=== PATIENT | male | born 1950 | race Caucasian/White ===

== ENCOUNTER 2017-11-12 02:21 | Observation (INO) ==
--- NOTE | 2017-11-12 02:36 | Emergency Department Note ---
Disposition Clinical Impression: Fluid overload Qualifiers: Hypervolemia type: unspecified Qualified Code(s): E87.70 - Fluid overload, unspecified Acute CHF Qualifiers: Heart failure type: unspecified Qualified Code(s): I50.9 - Heart failure, unspecified Disposition: Admitted As Inpatient Condition: Fair General Adult HPI - General Chief complaint: ED Shortness of Breath/Dyspnea Stated complaint: "SHERYL" Source: patient Limitations: no limitations Nursing Notes Reviewed: Yes Vital Signs Reviewed: Yes - History of Present Illness HPI Narrative: 67-year-old male presents emergency department with concern for shortness of breath. Patient states that he has had it shows of breath on exertion since 11 AM yesterday. Stated that when he went to bed, he laid down flat, he he got actually short of breath. Patient relates that this was similar to a time when he had a left-sided pleural effusion. Stated that it had a be drained. Patient states that this is not as bad. Patient denies any chest pain, pressure , tightness. Denies any cough, fever, sputum production. Pain Scale: 3 - Related Data Home Medications Medication Instructions Recorded Confirmed Amlodipine Besylate 10 mg PO DAILY 09/05/15 11/12/17 Atorvastatin Calcium [Lipitor] 80 mg PO DAILY 09/05/15 11/12/17 Etanercept [Enbrel] 1,000 mg SQ QWEEK 09/05/15 11/12/17 Sulfasalazine [Sulfazine] 500 mg PO BID 09/05/15 11/12/17 Insulin NPH, HUMAN [HumuLIN N] 20 unit SQ DAILY 11/12/17 11/12/17 Levothyroxine Sodium [Synthroid] 250 mcg PO 0630 11/12/17 11/12/17 Allergies Allergy/AdvReac Type Severity Reaction Status Date / Time No Known Allergies Allergy Verified 09/04/15 00:12 All systems ED: reviewed and negative except as stated. Review of Systems: As Per HPI Constitutional: Denies: fever Cardiovascular: Denies: chest pain, palpitations Respiratory: Reports: dyspnea. Denies: cough, wheezes Gastrointestinal: Denies: abdominal pain, nausea, vomiting Genitourinary: Denies: urgency, dysuria, frequency Musculoskeletal: Denies: back pain Past Medical History - Past Medical History Medical history: Reports: diabetes, hyperlipidemia, hypertension, thyroid disease Surgical history: Reports: thyroidectomy (08/15/15 at [facility]) Psychiatric history: Reports: no psych history - Social History Smoking Status: Never smoker Smokeless Tobacco Status: No Alcohol use: Reports: none Drug use: Reports: none Physical Exam - General Limitations: no limitations General appearance: alert, in no apparent distress - Head Head exam: normocephalic - Eye Eye exam: Present: EOMI - ENT ENT exam: normal oropharynx - Neck Neck exam: Present: trachea midline - Chest Chest inspection: Present: symmetric chest wall rise - Respiratory Respiratory exam: Present: other (Rales throughout) - Cardiovascular Cardiovascular exam: Present: regular rate, normal rhythm, normal heart sounds - Abdominal Exam Abdominal exam: Present: soft, Non-Tender. Absent: distention, guarding, rebound, rigidity - Extremities Exam Extremities exam: Present: normal capillary refill - Neurological Exam Neurological exam: Present: alert, oriented X3 - Psychiatric Psychiatric exam: Present: normal affect, normal mood - Skin Skin exam: Present: warm, dry, intact, normal color Course Vital Signs Temperature 98 F 11/12/17 02:28 Pulse Rate 75 11/12/17 02:28 Respiratory Rate 20 11/12/17 02:28 Blood Pressure 218/94 11/12/17 02:28 O2 Sat by Pulse Oximetry 93 11/12/17 02:28 Temperature 98.4 F 11/12/17 05:24 Pulse Rate 64 11/12/17 05:24 Respiratory Rate 16 11/12/17 05:24 Blood Pressure 194/88 11/12/17 05:24 O2 Sat by Pulse Oximetry 94 11/12/17 05:24 Oxygen Delivery Oxygen Delivery Nasal Cannula Medical Decision Making - [facility] Narrative Medical decision making narrative: 67-year-old male presents emergency department with concern for shortness of breath on exertion, and lying flat. Clinically, patient had rales when listening to his lungs. Initially concerning for acute onset congestive heart failure with volume overload. We will obtain chest x-ray. It revealed left pleural effusion as well as vascular congestion bilaterally. Radiology reading only revealing left pleural effusion versus pleural scarring with adjacent atelectasis. Patient was initially hypertensive with a blood pressure over 218/ 94. He was uncomfortable, but not in any significant respiratory distress at any time. Patient a BNP of 221. This is significantly higher from her previous home. Troponin is negative. Creatinine is 1.55, which is within his normal range. Patient's blood pressure lower throughout his stay. It was 186/ 96 at time of admission. We do not administer any blood pressure lowering medications prior to admission. Patient was given 40 mg of Lasix to begin diuresis. Patient is a hospitalist for further observation and management as well as further testing. Patient and at bedside agree with plan. Hemodynamically stable not in acute distress at time of admission. Chest X-Ray 11/12/17 02:37 IMPRESSION: Left pleural effusion versus pleural scarring with adjacent atelectasis, parenchymal scarring or pneumonia. D/ / Juan Kilgore MD / Juan Kilgore MD Interpreting Provider: Juan Kilgore MD Vital Signs Temperature 98 F 11/12/17 02:28 Pulse Rate 75 11/12/17 02:28 Respiratory Rate 20 11/12/17 02:28 Blood Pressure 218/94 11/12/17 02:28 O2 Sat by Pulse Oximetry 93 11/12/17 02:28 Temperature 98 F 11/12/17 02:28 Pulse Rate 64 11/12/17 04:42 Respiratory Rate 18 11/12/17 04:42 Blood Pressure 186/96 11/12/17 04:42 O2 Sat by Pulse Oximetry 95 11/12/17 04:42 Oxygen Delivery Oxygen Delivery Nasal Cannula - Lab Data Result diagrams: 11/12/17 02:43 11/12/17 02:43 Lab Results 11/12/17 11/12/17 11/12/17 Range/Units 02:43 02:43 02:43 WBC 6.0 (4.3-11.1) K/mcL RBC 3.92 L (4.19-5.50) M/mcL Hgb 10.6 L (12.9-16.9) g/dL Hct 30.7 L (37.5-50.1) % MCV 78.3 L (83.0-100.0) fL MCH 27.0 L (28.0-33.3) pg MCHC 34.5 (31.6-35.5) g/dL RDW 13.8 (11.5-14.5) % Plt Count 157 (140-400) K/mcL MPV 9.2 L (9.4-12.4) fL Immature Gran % 0.2 (0-4) % Seg Neutrophils % 77.7 % Lymphocytes % 10.6 % Monocytes % 8.1 % Eosinophils % 2.9 % Basophils % 0.5 % Neutrophils # 4.6 (1.6-8.9) K/mcL Lymphocytes # 0.6 (0.6-4.6) K/mcL Monocytes # 0.5 (0.0-1.3) K/mcL Eosinophils # 0.2 (0.0-0.6) K/mcL Basophils # 0.0 (0.0-0.2) K/mcL Sodium 136 (136-145) mEq/L Potassium 4.0 (3.5-5.1) mEq/L Chloride 105 (98-107) mEq/L Carbon Dioxide 25 (23-29) mEq/L BUN 16 (8-23) mg/dL Creatinine 1.55 H (0.70-1.30) mg/dL Est GFR ( Amer) 54 L (> 60) Est GFR (Non-Af Amer) 45 L (> 60) BUN/Creatinine Ratio 10 (6-26) Glucose 150 H (70-105) mg/dL Calculated Osmolality 286 (280-300) Lactic Acid (0.5-2.2) mmol/L Calcium 8.7 (8.6-10.3) mg/dL Troponin I < 0.03 (< 0.04) ng/mL B-Natriuretic Peptide 221 H (Less than 100) pg/mL TSH 5.934 H (0.340-5.600) mcIU/mL 11/12/17 Range/Units 03:01 WBC (4.3-11.1) K/mcL RBC (4.19-5.50) M/mcL Hgb (12.9-16.9) g/dL Hct (37.5-50.1) % MCV (83.0-100.0) fL MCH (28.0-33.3) pg MCHC (31.6-35.5) g/dL RDW (11.5-14.5) % Plt Count (140-400) K/mcL MPV (9.4-12.4) fL Immature Gran % (0-4) % Seg Neutrophils % % Lymphocytes % % Monocytes % % Eosinophils % % Basophils % % Neutrophils # (1.6-8.9) K/mcL Lymphocytes # (0.6-4.6) K/mcL Monocytes # (0.0-1.3) K/mcL Eosinophils # (0.0-0.6) K/mcL Basophils # (0.0-0.2) K/mcL Sodium (136-145) mEq/L Potassium (3.5-5.1) mEq/L Chloride (98-107) mEq/L Carbon Dioxide (23-29) mEq/L BUN (8-23) mg/dL Creatinine (0.70-1.30) mg/dL Est GFR ( Amer) (> 60) Est GFR (Non-Af Amer) (> 60) BUN/Creatinine Ratio (6-26) Glucose (70-105) mg/dL Calculated Osmolality (280-300) Lactic Acid 0.6 (0.5-2.2) mmol/L Calcium (8.6-10.3) mg/dL Troponin I (< 0.04) ng/mL B-Natriuretic Peptide (Less than 100) pg/mL TSH (0.340-5.600) mcIU/mL - EKG Data EKG #1 EKG attestation: Yes I reviewed and interpreted this EKG. EKG results narrative: 2:37 Ventricular rate 73 bpm, SC interval 132 ms, QRS duration 92 ms, QT 364 ms, QTC 390 ms, normal axis. Sinus rhythm with a ventricular rate 73 bpm. No evidence of any ischemic ST changes on this EKG. Attestation Statement - Attestation Attestation: Dr Cox note: Pt seen in conjunction w/ resident Dr Porras; please see his charting for complete documentation. I spent [id number] time with the patient and I agree with the patient's treatment and disposition. Exertional dypnea gradual onset/ progression since 11 a.m today; no chest pain/diaphoresis; h/o same; vascular congestion noted on x ray; bloodwork and ekg reviewed; no sx at rest or tachypnea or hypoxia @ rest;
[2017-11-12 03:09] LABS: Basophils % 0.5 %; Eosinophils # 0.2 K/mcL (0.0-0.6); Eosinophils % 2.9 %; Hematocrit 30.7 % (37.5-50.1); Hemoglobin 10.6 g/dL (12.9-16.9); Immature Granulocytes % 0.2 % (0-4); Lymphocytes # 0.6 K/mcL (0.6-4.6); Lymphocytes % 10.6 %; Mean Corpuscular HGB Conc 34.5 g/dL (31.6-35.5); Mean Corpuscular Volume 78.3 fL (83.0-100.0); Mean Platelet Volume 9.2 fL (9.4-12.4); Monocytes # 0.5 K/mcL (0.0-1.3); Monocytes % 8.1 %; Neutrophils # 4.6 K/mcL (1.6-8.9); Platelet Count 157 K/mcL (140-400); Red Blood Count 3.92 M/mcL (4.19-5.50); Red Cell Distribution Width 13.8 % (11.5-14.5); Segmented Neutrophils % 77.7 %
[2017-11-12 03:18] LABS: BUN/Creatinine Ratio 10 (6-26); Blood Urea Nitrogen 16 mg/dL (8-23); Calcium 8.7 mg/dL (8.6-10.3); Carbon Dioxide 25 mEq/L (23-29); Chloride 105 mEq/L (98-107); Glucose 150 mg/dL (70-105); Osmolality,Calculated 286 (280-300); Sodium 136 mEq/L (136-145); eGFR For Non-African Americans 45 (> 60)
[2017-11-12 03:19] LABS: Troponin I < 0.03 ng/mL (< 0.04)
[2017-11-12] MEDS ORDERED: Furosemide 40 MG/4 ML VIAL IVP ONE (03:48)
[2017-11-12] MEDS ORDERED: Naloxone 0.4 MG/ML INJ IVP PRN (04:02)
[2017-11-12 04:11] LABS: Thyroid Stimulating Hormone 5.934 mcIU/mL (0.340-5.600)
--- NOTE | 2017-11-12 04:33 | Internal Med History&Physical ---
Date of Encounter: 11/12/17 Time of Encounter: 04:00 Internal Medicine - H&P: HPI Chief complaint: SOB History of present illness: Mr. Clifton is a 67 year old male with past medical history of hypertension, diabetes, papillary thyroid CA status post thyroidectomy, probable CKD, presented to the ED with acute onset of dyspnea. Started this AM after he woke up from sleep, progressively worsened over yesterday and hence came to the ED for further evaluation. Associated with orthopnea without PND or leg swelling. Denies chest pain, palpitation, cough, sputum production, abdominal pain, change in bowel habits, dysuria, joint pain, or rash. Also had mild headache that got better after PO tylenol. Denies blurring of vision, diplopia, dysarthria, focal weakness or numbness. No fever/chills, N/V, or diaphoresis. He said his blood pressure is usually well controlled on Norvasc only. Also note, he had a similar episode in 2016 when he had acute onset of left-sided pleural effusion that was transudative. In the ER, he was afebrile but his blood pressure was elevated at 218/94. Oxygen saturation was at 93% on room air. Labs were largely unremarkable except mildly elevated BNP. Hb and Cr at his baseline, 1st troponin -ve. TSH also mildly elevated. His blood pressure spontaneously improved to 180/89 without any treatment. CXR is reported as " Left pleural effusion versus pleural scarring with adjacent atelectasis, parenchymal scarring or pneumonia." but it appeared to have prominent vascular marking and possible Melanie B line on the right. He was given IV lasix 40mg and admitted for further management. Past Med Surg Social Fam HX - Past Medical History Attestation: Yes The following information was validated with the patient. Medical history: diabetes, hyperlipidemia, hypertension, thyroid disease Psychiatric history: no psych history - Past Surgical History Surgical History: thyroidectomy (08/15/15 at [facility]) Additional surgical history: R elbow - Social History Smoking Status: Never smoker Smokeless Tobacco Status: No Alcohol use: none Drug use: none - Family History Mother Adopted: No Living Status: Hx Family Cardiac Disorders: No Hx Family Respiratory Disorders: Yes (COPD) Hx Family Cancer: Yes (LEUKAEMIA) Hx Family GI Disorders: No Hx Family Endocrine Disorder: No Hx Family Neuromuscular Disorders: No Hx Family Neurologic Disorders: No Hx Family HEENT Disorders: No Hx Family Autoimmune Disorders: No Father Living Status: Hx Family Cardiac Disorders: No Hx Family Respiratory Disorders: No Hx Family Cancer: No Hx Family GI Disorders: No Hx Family Endocrine Disorder: No Hx Family Neuromuscular Disorders: No Hx Family Neurologic Disorders: No Hx Family HEENT Disorders: No Hx Family Autoimmune Disorders: No Brother Adopted: No Living Status: Still Living Hx Family Cardiac Disorders: No Hx Family Respiratory Disorders: No Hx Family Cancer: No Hx Family GI Disorders: No Hx Family Endocrine Disorder: No Hx Family Neuromuscular Disorders: No Hx Family Neurologic Disorders: No Hx Family HEENT Disorders: No Hx Family Autoimmune Disorders: No Son Living Status: Hx Family Cancer: Yes (Hodgkin lymphoma, leukemia) Internal Medicine - H&P: Meds Amlodipine Besylate 10 mg PO DAILY 09/05/15 [History] Atorvastatin Calcium [Lipitor] 80 mg PO DAILY 09/05/15 [History] Etanercept [Enbrel] 1,000 mg SQ 09/05/15 [History] Sulfasalazine [Sulfazine] 500 mg PO BID 09/05/15 [History] Insulin NPH, HUMAN [HumuLIN N] 20 unit SQ DAILY 11/12/17 [History] Levothyroxine Sodium [Synthroid] 250 mcg PO 0630 11/12/17 [History] 3 Allergy/AdvReac Type Severity Reaction Status Date / Time No Known Allergies Allergy Verified 09/04/15 00:12 All Systems PM: A 10-system review of systems was performed and is negative for pertinent findings except as documented above in the HPI. - Constitutional Vitals: Temp Pulse Resp BP Pulse Ox 98 F 66 22 180/89 95 11/12/17 02:28 11/12/17 04:10 11/12/17 04:10 11/12/17 04:10 11/12/17 04:10 Exam: General: Alert and oriented, speaking in full sentences HEENT:EOM, pupils equal, round, and reactive. Cardiovascular:Normal S1 & S2, no murmurs or gallops. Unable to appreciate JVD. Pulse regular. Lungs: bibasilar rales upto midzones, no rhonchi or wheezes. Abdomen:Soft, non-tender, no rigidity. Extremities:No deformity, no edema or tenderness, no joint swelling. Neurological:Normal cognition and motor skills. Skin:Normal color, no rash, no lesions. Pulses:Carotid and radial pulses normal +2. Rest of the physical exam is non-contributory Internal Med - H&P Results - Labs CBC & Chem 7: 11/12/17 02:43 11/12/17 02:43 Labs: Short CBC 11/12/17 Range/Units 02:43 WBC 6.0 (4.3-11.1) K/mcL Hgb 10.6 L (12.9-16.9) g/dL Hct 30.7 L (37.5-50.1) % Plt Count 157 (140-400) K/mcL Neutrophils # 4.6 (1.6-8.9) K/mcL BMP 11/12/17 02:43 Sodium 136 Potassium 4.0 Chloride 105 Carbon Dioxide 25 BUN 16 Creatinine 1.55 H Glucose 150 H Calcium 8.7 Cardiac Enzymes 11/12/17 Range/Units 02:43 Troponin I < 0.03 (< 0.04) ng/mL - Impressions ITS Impressions Chest X-Ray 11/12/17 02:37 IMPRESSION: Left pleural effusion versus pleural scarring with adjacent atelectasis, parenchymal scarring or pneumonia. D/ / Juan Kilgore MD / Juan Kilgore MD Interpreting Provider: Juan Kilgore MD - Assessment and plan (1) Heart failure, diastolic, with acute decompensation Current Visit: Yes Status: Acute Assessment and plan: Likely due to elevated blood pressure However, his blood pressure is mostly well-controlled at baseline with only one agent Also, he endorses history of headache associated with it. ?pheochromocytoma with paroxysmal HTN will give 1 dose of IV lasix and reassess for further need 1st troponin -ve, will trend to rule out ACS being the cause of decompensation Echocardiogram will send for metanephrine level resume home meds for BP (2) Hypertension Current Visit: Yes Status: Chronic Assessment and plan: ?Pheochromocytoma with paroxysmal HTN send metanephrine level as above resume home meds Qualifiers: Hypertension type: essential hypertension Qualified Code(s): I10 - Essential (primary) hypertension (3) Hypothyroidism Current Visit: No Status: Chronic Assessment and plan: TSH mildly elevated but is not reliable in the inpatient setting. Continue home dose of levothyroxine. Suggest repeating TSH in 4-6 weeks Qualifiers: Hypothyroidism type: postoperative Qualified Code(s): E89.0 - Postprocedural hypothyroidism (4) Diabetes Current Visit: No Status: Chronic Assessment and plan: ADA and sliding scale coverage Qualifiers: Diabetes mellitus type: type 2 Diabetes mellitus fdc insulin use: unspecified intermediate frame tender insulin use status Diabetes mellitus complication status : with unspecified complications Qualified Code(s): E11.8 - Type 2 diabetes mellitus with unspecified complications (5) Rheumatoid arthritis Current Visit: No Status: Chronic Assessment and plan: Continue sulfasalazine. Hold off on Enbrel. Qualifiers: Rheumatoid arthritis location: unspecified site Rheumatoid factor presence : unspecified presence Qualified Code(s): M06.9 - Rheumatoid arthritis, unspecified (6) DVT prophylaxis Current Visit: No Status: Acute Assessment and plan: Subcutaneous heparin - Time Spent With Patient Total time spent is greater than 50% in coordination of care (as documented) at patient's floor/unit and/or counseling patient:
[2017-11-12] MEDS ORDERED: D5% in Water 1,000 ML IVC PRN (04:45)
[2017-11-12] MEDS ORDERED: Dextrose Gel 15 GM/37.5 ML TUBE PO PRN ×2 (04:45)
[2017-11-12] MEDS ORDERED: *HR* Dextrose 50 % in Water (Syg) 50 ML SYRINGE IVP PRN (04:45)
[2017-11-12 05:14] LABS: Amphetamine Screen,Urine Negative ng/mL (Cutoff=1000); Barbiturate Screen,Urine Negative ng/mL (Cutoff=200); Benzodiazepines Screen,Urine Negative ng/mL (Cutoff=200); Cannabinoid Screen,Urine Negative ng/mL (Cutoff = 50); Cocaine Screen,Urine Negative ng/mL (Cutoff= 300); Opiate Screen,Urine Negative ng/mL (Cutoff=300); Phencyclidine Screen,Urine Negative ng/mL (Cutoff=25)
[2017-11-12] MEDS ORDERED: *HR* Labetalol 20 MG/4 ML SYRINGE IVP PRN (05:26)
[2017-11-12] MEDS ORDERED: *HR* Heparin 5,000 UNIT/ML VIAL SQ SCH (06:00)
[2017-11-12] MEDS: Insulin LISPRO 300 UNITS/3 ML VIAL SQ SCH ×2 (08:41→11:27)
[2017-11-12] MEDS ORDERED: amLODIPine 5 MG TABLET PO SCH (09:00)
[2017-11-12] MEDS ORDERED: sulfaSALAzine 500 MG TABLET PO SCH (09:00)
[2017-11-12 11:18] VITALS: BP 168/69
--- NOTE | 2017-11-12 13:19 | Discharge Summary ---
- NOTES TO OUTPATIENT PROVIDER Notes to Outpatient Provider: f/u with PCP in one week. Please stop taking HCTZ since with your Chronic kidney disease it may not work for you. Start taking Coreg 6.25 BID for BP and Heart failure. Also take Lasix as water pill for your shortness of breath Orders not resulted at time of discharge: Pending orders 11/12/17 06:13 Metanephrines, Plasma (Free) Routine Date of Encounter: 11/12/17 Time of Encounter: 13:18 - Discharge Diagnosis (1) Heart failure, diastolic, with acute decompensation Priority: Primary Status: Acute (2) DVT prophylaxis Priority: Secondary Status: Acute (3) Hypertension Priority: Secondary Status: Chronic Qualifiers: Hypertension type: essential hypertension Qualified Code(s): I10 - Essential (primary) hypertension (4) Diabetes Priority: Secondary Status: Chronic Qualifiers: Diabetes mellitus type: type 2 Diabetes mellitus snf insulin use: unspecified snf insulin use status Diabetes mellitus complication status : with unspecified complications Qualified Code(s): E11.8 - Type 2 diabetes mellitus with unspecified complications (5) Hypothyroidism Priority: Secondary Status: Chronic Qualifiers: Hypothyroidism type: postoperative Qualified Code(s): E89.0 - Postprocedural hypothyroidism (6) Rheumatoid arthritis Priority: Secondary Status: Chronic Qualifiers: Rheumatoid arthritis location: unspecified site Rheumatoid factor presence : unspecified presence Qualified Code(s): M06.9 - Rheumatoid arthritis, unspecified Hospital course: Mr. Clifton is a 67 year old male with past medical history of hypertension, diabetes, papillary thyroid CA status post thyroidectomy, probable CKD stage 3, presented to the ED with acute onset of dyspnea. He does have mild acute exacerbation of chronic CHF. He was placed on rn cardiac rehab and checked serial troponin which were negative. Also he had 2D Echo done which showed preserved LVEF with diastolic dysfunction. He was given Lasix. Pt stated he is feeling much better today SOB delatorre. So will d/c him home in stable condition. Recommend to take Lasix instead of HCTZ. Also added Coreg due to CHF and uncontrolled BP. - Time Spent with Patient Total time spent providing and/or coordinating discharge services: - Discharge Medications Prescriptions: Carvedilol [Coreg] 6.25 mg PO BIDWM #60 tablet Furosemide [Lasix] 20 mg PO DAILY #30 tablet Home Medications: Amlodipine Besylate 10 mg PO DAILY 09/05/15 [History] Atorvastatin Calcium [Lipitor] 80 mg PO DAILY 09/05/15 [History] Etanercept [Enbrel] 1,000 mg SQ QWEEK 09/05/15 [History] Sulfasalazine [Sulfazine] 1,000 mg PO BID 09/05/15 [History] Carvedilol [Coreg] 6.25 mg PO BIDWM #60 tablet 11/12/17 [Rx] Cholecalciferol (D-3) [Vitamin D] 3,000 unit PO DAILY 11/12/17 [History] Cyclobenzaprine HCl 5 mg PO TID PRN 11/12/17 [History] Etanercept [Enbrel] 50 mg SQ QWEEK 11/12/17 [History] Furosemide [Lasix] 20 mg PO DAILY #30 tablet 11/12/17 [Rx] Insulin NPH Human Isophane [Novolin N] 20 unit SQ QPM 11/12/17 [History] Insulin NPH, HUMAN [HumuLIN N] 20 unit SQ DAILY 11/12/17 [History] Levothyroxine Sodium [Synthroid] 250 mcg PO DAILY 11/12/17 [History] Losartan Potassium [Cozaar] 100 mg PO DAILY 11/12/17 [History] Allergies/Adverse Reactions: 3 Allergy/AdvReac Type Severity Reaction Status Date / Time No Known Allergies Allergy Verified 09/04/15 00:12 Date of admission: 11/12/17 04:09 Primary care physician: [facility] - Constitutional Vitals: Temp Pulse Resp BP Pulse Ox 99.1 F 57 18 168/69 96 11/12/17 11:17 11/12/17 11:17 11/12/17 11:17 11/12/17 11:17 11/12/17 11:17 General appearance: Present: A&O X 3, no acute distress, answers questions appropriately - Head Head exam: Present: atraumatic, normal inspection - Neck Neck exam general surgery: Present: supple - Respiratory Respiratory exam: Present: decreased breath sounds. Absent: rales, respiratory distress, rhonchi, wheezes - Cardiovascular Cardiovascular exam: Present: RRR, +S1, +S2. Absent: systolic murmur - Extremities Exam Extremities exam: Absent: calf tenderness, pedal edema, tenderness - Back Exam Back exam: Absent: CVA tenderness (L), CVA tenderness (R) - Neurological Exam Neurological exam: Present: alert, oriented X3 - Patient Status Disposition: Home, Self-Care Condition: Fair - Discharge Instructions Follow Up With: [facility],PCP [Primary Care Provider] - - Diet and Activity Activity: increase activity as tolerated Diet: low salt diet
--- NOTE | 2017-11-12 17:14 | Electrocardiograph Report ---
[address] [place] [address] Test Date: 2017-11-12 Pat Name: Wyatt Clifton Department: 104 Room: 2A Gender: M Medical Superintendent: MARINA : 1950 Requested By: Heron Mitchell Order Number: [id number] Reading MD: Moy Sim Measurements Intervals [place] Rate: 73 P: 47 NM: 132 QRS: 51 QRSD: 92 T: 52 QT: 364 QTc: 390 Interpretive Statements SINUS RHYTHM SEPTAL MYOCARDIAL INFARCTION, OF INDETERMINATE AGE Electronically Signed On 11-12-2017 17:12:21 EDT by Moy Sim
[2017-11-12] MEDS ORDERED: Insulin LISPRO 300 UNITS/3 ML VIAL SQ SCH (21:00)
[2017-11-15 14:13] LABS: Metanephrine, Plasma 0.15 nmol/L (0.00-0.49)
== END 2017-11-12 14:34 | disposition home or self-care (01) ==
LOC: EMEROO 02:21 → 2ANU 02:21
PROVIDERS: ADMIT Internal Medicine; ATTEND Internal Medicine

== ENCOUNTER 2020-04-24 18:02 | Observation (INO) ==
[2020-04-24 19:20] LABS: INR 1.1; Prothrombin Time 12.3 Seconds (9.4-12.1)
[2020-04-24 19:22] LABS: Bilirubin,Urine Negative (Negative); Blood,Urine Trace (Negative); Clarity,Urine Clear (Clear); Color,Urine Colorless (Yellow); Glucose,Urine (UA) 50 mg/dL (Normal); Ketones,Urine Negative (Negative); Leukocyte Esterase,Urine Negative (Negative); Nitrite,Urine Negative (Negative); Protein,Urine >=300 mg/dL (Neg-Trace); RBC,Urine 0-3 per hpf (0-3); Specific Gravity,Urine 1.015 (1.010-1.025); Squamous Epithelial Cell,Urine Few per hpf (None-Few); Urobilinogen,Urine Normal (Normal); WBC,Urine 0-3 per hpf (0-3)
[2020-04-24 19:22] LABS: Activated Partial Thrombo Time 28.2 Seconds (26.0-36.0)
[2020-04-24 19:38] LABS: Basophils % 0.5 %; Eosinophils # 0.1 K/mcL (0.0-0.6); Eosinophils % 1.1 %; Hematocrit 27.9 % (37.5-50.1); Hemoglobin 8.7 g/dL (12.9-16.9); Immature Granulocytes % 0.3 % (0-4); Lymphocytes # 0.4 K/mcL (0.6-4.6); Lymphocytes % 6.8 %; Mean Corpuscular HGB Conc 31.2 g/dL (31.6-35.5); Mean Corpuscular Hemoglobin 26.9 pg (28.0-33.3); Mean Corpuscular Volume 86.4 fL (83.0-100.0); Monocytes # 0.6 K/mcL (0.0-1.3); Monocytes % 9.3 %; Platelet Count 140 K/mcL (140-400); Red Blood Count 3.23 M/mcL (4.19-5.50); Red Cell Distribution Width 14.1 % (11.5-14.5); White Blood Count 6.2 K/mcL (4.3-11.1)
[2020-04-24 19:56] LABS: Alanine Aminotransferase 11 Units/L (7-52); Albumin 3.3 g/dL (3.5-5.7); Albumin/Globulin Ratio 1.1 (1.1-2.2); Alkaline Phosphatase 88 Units/L (34-104); Aspartate Amino Transferase 13 Units/L (13-39); BUN/Creatinine Ratio 16 (6-26); Bilirubin,Direct 0.1 mg/dL (0.0-0.2); Bilirubin,Indirect 0.2 mg/dL (0.0-1.0); Bilirubin,Total 0.3 mg/dL (0.3-1.0); Blood Urea Nitrogen 39 mg/dL (8-23); Calcium 8.6 mg/dL (8.6-10.3); Carbon Dioxide 18 mEq/L (23-29); Chloride 109 mEq/L (98-107); Globulin 2.9 g/dL (2.4-3.5); Glucose 147 mg/dL (70-105); Osmolality,Calculated 296 (280-300); Potassium 4.4 mEq/L (3.5-5.1); Sodium 137 mEq/L (136-145); Total Protein 6.2 g/dL (6.4-8.9); Troponin I < 0.03 ng/mL (< 0.04); eGFR For African Americans 31 (> 60); eGFR For Non-African Americans 26 (> 60)
[2020-04-24] MEDS ORDERED: Furosemide 40 MG/4 ML VIAL IVP ONE (19:59)
[2020-04-24] MEDS ORDERED: carvediloL 6.25 MG TABLET PO ONE (20:00)
[2020-04-24] MEDS ORDERED: Nitroglycerin 0.4 MG TAB.SUBL SL ONE (22:10)
[2020-04-24] MEDS: Nitroglycerin 0.4 MG TAB.SUBL SL PRN ×3 (22:11→22:21)
[2020-04-24] MEDS ORDERED: Aspirin 81 MG TAB.CHEW PO ONE (22:13)
[2020-04-24] MEDS ORDERED: Ondansetron ODT 4 MG TAB.RAPDIS SL PRN (22:31)
[2020-04-24] MEDS ORDERED: Naloxone 0.4 MG/ML INJ IVP PRN (22:31)
[2020-04-24] MEDS ORDERED: Acetaminophen 325 MG TABLET PO PRN (22:31)
[2020-04-24] MEDS ORDERED: Perflutren Lipid Microsphere 1.3 ML in 0.9 % Sodium Chloride 8.7 ML IVP PRN (23:47)
[2020-04-25 00:58] LABS: Basophils % 0.3 %; Eosinophils % 0.5 %; Hematocrit 26.8 % (37.5-50.1); Hemoglobin 8.3 g/dL (12.9-16.9); Immature Granulocytes % 0.2 % (0-4); Lymphocytes # 0.4 K/mcL (0.6-4.6); Mean Corpuscular Hemoglobin 26.6 pg (28.0-33.3); Mean Corpuscular Volume 85.9 fL (83.0-100.0); Mean Platelet Volume 9.2 fL (9.4-12.4); Monocytes # 0.6 K/mcL (0.0-1.3); Monocytes % 9.9 %; Neutrophils # 5.1 K/mcL (1.6-8.9); Platelet Count 126 K/mcL (140-400); Red Blood Count 3.12 M/mcL (4.19-5.50); Red Cell Distribution Width 14.2 % (11.5-14.5); Segmented Neutrophils % 83.1 %; White Blood Count 6.2 K/mcL (4.3-11.1)
[2020-04-25 01:06] LABS: Activated Partial Thrombo Time 28.3 Seconds (26.0-36.0)
[2020-04-25 01:54] LABS: Calcium 8.1 mg/dL (8.6-10.3); Chol/HDL Ratio 2.8 (0-4.9); Magnesium 1.5 mg/dL (1.6-2.6); Phosphorous 3.1 mg/dL (2.7-4.5); Potassium 4.5 mEq/L (3.5-5.1); Thyroid Stimulating Hormone 7.352 mcIU/mL (0.340-5.600)
[2020-04-25] MEDS: Azithromycin 500 MG in 0.9 % Sodium Chloride 250 ML IVPB SCH ×2 (02:03→17:30)
[2020-04-25] MEDS: cefTRIAXone 1,000 MG in 0.9 % Sodium Chloride Mini Bag 100 ML IVPB SCH ×2 (06:34→07:47)
[2020-04-26] MEDS ORDERED: CefTRIAXone 1,000 MG VIAL ONE ×2 (08:40→08:41)
[2020-04-26] MEDS: cefTRIAXone 1,000 MG in 0.9 % Sodium Chloride Mini Bag 100 ML IVPB SCH (08:54)
[2020-04-26] MEDS ORDERED: NON-FORMULARY MEDICATION 1 EACH EACH (Ipratropium/Albuterol Sulfate 1 PUFF) IH PRN (12:37)
[2020-04-26] MEDS ORDERED: DICLOFENAC SODIUM APPL TD PRN (12:37)
[2020-04-26 12:42] VITALS: BP 190/88
[2020-04-26] MEDS ORDERED: NIFEdipine XL (24 HR) 60 MG TAB.ER.24 PO SCH (12:47)
[2020-04-26] MEDS ORDERED: sulfaSALAzine 500 MG TABLET PO SCH (21:00)
[2020-04-26] MEDS ORDERED: carvediloL 6.25 MG TABLET PO SCH (21:00)
[2020-04-26] MEDS ORDERED: Budesonide/Formoterol 160/4.5 1 PUFF INH IH SCH (21:00)
[2020-04-27] MEDS ORDERED: Cholecalciferol (D-3) 1,000 UNIT (25MCG) TABLET PO SCH (09:00)
[2020-04-27] MEDS ORDERED: Furosemide 20 MG TABLET PO SCH (09:00)
[2020-04-27] MEDS ORDERED: Aspirin Enteric Coated 81 MG Tablet PO SCH (09:00)
[2020-04-27] MEDS ORDERED: NIFEdipine XL (24 HR) 60 MG TAB.ER.24 PO SCH (09:00)
== END 2020-04-26 13:51 | disposition home health service (06) ==
LOC: CDU 18:02 → EMEROOARM 18:02 → SUATTDRO 22:13 → CDU 22:50
PROVIDERS: ADMIT Internal Medicine; ATTEND Student in an Organized Health Care Education/Training Program

== ENCOUNTER 2020-05-17 04:37 | Observation (INO) ==
[2020-05-17 05:22] LABS: Basophils % 0.7 %; Eosinophils # 0.2 K/mcL (0.0-0.6); Eosinophils % 2.9 %; Hematocrit 32.4 % (37.5-50.1); Immature Granulocytes % 0.2 % (0-4); Lymphocytes # 0.5 K/mcL (0.6-4.6); Lymphocytes % 8.7 %; Mean Corpuscular HGB Conc 30.9 g/dL (31.6-35.5); Mean Corpuscular Volume 87.3 fL (83.0-100.0); Mean Platelet Volume 9.3 fL (9.4-12.4); Monocytes # 0.4 K/mcL (0.0-1.3); Monocytes % 6.6 %; Neutrophils # 4.8 K/mcL (1.6-8.9); Platelet Count 150 K/mcL (140-400); Red Blood Count 3.71 M/mcL (4.19-5.50); Red Cell Distribution Width 15.9 % (11.5-14.5); Segmented Neutrophils % 80.9 %; White Blood Count 5.9 K/mcL (4.3-11.1)
[2020-05-17 05:43] LABS: BUN/Creatinine Ratio 17 (6-26); Blood Urea Nitrogen 39 mg/dL (8-23); Carbon Dioxide 22 mEq/L (23-29); Chloride 107 mEq/L (98-107); Glucose 154 mg/dL (70-105); Osmolality,Calculated 296 (280-300); Potassium 4.4 mEq/L (3.5-5.1); Sodium 137 mEq/L (136-145); eGFR For African Americans 35 (> 60); eGFR For Non-African Americans 29 (> 60)
[2020-05-17 05:44] LABS: Troponin I < 0.03 ng/mL (< 0.04)
[2020-05-17] MEDS ORDERED: Ondansetron 4 MG/2 ML VIAL IVP PRN (08:44)
[2020-05-17] MEDS ORDERED: Naloxone 0.4 MG/ML INJ IVP PRN (08:44)
[2020-05-17] MEDS ORDERED: Perflutren Lipid Microsphere 1.3 ML in 0.9 % Sodium Chloride 8.7 ML IVP PRN (08:51)
[2020-05-17] MEDS ORDERED: Doxycycline 100 MG CAPSULE PO SCH (09:00)
[2020-05-17] MEDS: Aspirin Enteric Coated 81 MG Tablet PO SCH (10:19)
[2020-05-17] MEDS: carvediloL 6.25 MG TABLET PO SCH ×2 (10:19→20:22)
[2020-05-17] MEDS: NIFEdipine XL (24 HR) 60 MG TAB.ER.24 PO SCH (10:19)
[2020-05-17] MEDS: Furosemide 20 MG/2 ML VIAL IVP SCH ×2 (10:20→20:22)
[2020-05-17] MEDS ORDERED: Ipratropium 1 PUFF INHALER IH ONE (10:30)
[2020-05-17] MEDS: Ipratropium 1 PUFF INHALER IH SCH ×4 (11:21→23:44)
[2020-05-17] MEDS: Budesonide/Formoterol 160/4.5 1 PUFF INH IH SCH ×2 (11:21→20:01)
[2020-05-17] MEDS ORDERED: Ipratropium/Albuterol Neb 3 ML IH SCH (12:00)
[2020-05-17] MEDS: *HR* Heparin 5,000 UNIT/ML VIAL SQ SCH (17:54)
[2020-05-18 00:46] LABS: Basophils % 0.5 %; Eosinophils # 0.1 K/mcL (0.0-0.6); Eosinophils % 3.1 %; Hematocrit 27.9 % (37.5-50.1); Hemoglobin 8.9 g/dL (12.9-16.9); Immature Granulocytes % 0.3 % (0-4); Lymphocytes # 0.6 K/mcL (0.6-4.6); Lymphocytes % 14.5 %; Mean Corpuscular HGB Conc 31.9 g/dL (31.6-35.5); Mean Corpuscular Hemoglobin 27.7 pg (28.0-33.3); Mean Corpuscular Volume 86.9 fL (83.0-100.0); Mean Platelet Volume 9.9 fL (9.4-12.4); Monocytes # 0.3 K/mcL (0.0-1.3); Monocytes % 8.5 %; Neutrophils # 2.8 K/mcL (1.6-8.9); Platelet Count 136 K/mcL (140-400); Red Blood Count 3.21 M/mcL (4.19-5.50); Red Cell Distribution Width 15.8 % (11.5-14.5); Segmented Neutrophils % 73.1 %; White Blood Count 3.9 K/mcL (4.3-11.1)
[2020-05-18 00:51] LABS: INR 1.1; Prothrombin Time 13.2 Seconds (9.4-12.1)
[2020-05-18 00:54] LABS: Activated Partial Thrombo Time 28.5 Seconds (26.0-36.0)
[2020-05-18 01:06] LABS: Calcium 8.5 mg/dL (8.6-10.3); Magnesium 1.7 mg/dL (1.6-2.6); Phosphorous 3.2 mg/dL (2.7-4.5); Potassium 4.6 mEq/L (3.5-5.1)
[2020-05-18] MEDS: Ipratropium 1 PUFF INHALER IH SCH ×3 (03:48→11:13)
[2020-05-18] MEDS: *HR* Heparin 5,000 UNIT/ML VIAL SQ SCH (05:29)
[2020-05-18] MEDS: Budesonide/Formoterol 160/4.5 1 PUFF INH IH SCH (07:35)
[2020-05-18 07:55] VITALS: BP 176/87
[2020-05-18] MEDS: Furosemide 20 MG/2 ML VIAL IVP SCH (09:34)
[2020-05-18] MEDS: carvediloL 6.25 MG TABLET PO SCH (09:34)
[2020-05-18] MEDS: NIFEdipine XL (24 HR) 60 MG TAB.ER.24 PO SCH (09:34)
[2020-05-18] MEDS: Aspirin Enteric Coated 81 MG Tablet PO SCH (09:34)
[2020-05-18] MEDS ORDERED: cefTRIAXone 1,000 MG in Water for inj. (sterile) 10 ML IVP SCH (10:00)
[2020-05-18] MEDS ORDERED: Azithromycin 500 MG in 0.9 % Sodium Chloride 250 ML IVPB SCH (10:00)
== END 2020-05-18 12:28 | disposition home or self-care (01) ==
LOC: 2NENU 04:37 → EMEROOARM 04:37 → 2NENU 09:33
PROVIDERS: ADMIT Internal Medicine; ATTEND Internal Medicine

== ENCOUNTER 2021-10-26 19:02 | Observation (INO) ==
[2021-10-26 19:40] LABS: Basophils % 0.5 %; Eosinophils # 0.1 K/mcL (0.0-0.6); Eosinophils % 2.5 %; Hematocrit 25.8 % (37.5-50.1); Hemoglobin 7.9 g/dL (12.9-16.9); Immature Granulocytes % 0.5 % (0-4); Lymphocytes # 0.4 K/mcL (0.6-4.6); Lymphocytes % 8.3 %; Mean Corpuscular HGB Conc 30.6 g/dL (31.6-35.5); Mean Corpuscular Hemoglobin 27.1 pg (28.0-33.3); Mean Corpuscular Volume 88.4 fL (83.0-100.0); Mean Platelet Volume 8.8 fL (9.4-12.4); Monocytes # 0.3 K/mcL (0.0-1.3); Monocytes % 6.3 %; Neutrophils # 3.5 K/mcL (1.6-8.9); Platelet Count 143 K/mcL (140-400); Red Blood Count 2.92 M/mcL (4.19-5.50); Red Cell Distribution Width 15.7 % (11.5-14.5); Segmented Neutrophils % 81.9 %; White Blood Count 4.3 K/mcL (4.3-11.1)
[2021-10-26 20:00] LABS: BUN/Creatinine Ratio 17 (6-26); Blood Urea Nitrogen 53 mg/dL (8-23); Calcium 8.9 mg/dL (8.6-10.3); Carbon Dioxide 16 mEq/L (23-29); Chloride 114 mEq/L (98-107); Glucose 55 mg/dL (70-105); Magnesium 1.8 mg/dL (1.6-2.6); Osmolality,Calculated 296 (280-300); Potassium 4.7 mEq/L (3.5-5.1); Sodium 137 mEq/L (136-145); eGFR For African Americans 24 (> 60); eGFR For Non-African Americans 20 (> 60)
[2021-10-26 20:09] LABS: Troponin I < 0.03 ng/mL (< 0.04)
[2021-10-26] MEDS ORDERED: *HR* Dextrose 50 % in Water (Syg) 50 ML SYRINGE ONE (20:26)
[2021-10-26] MEDS: D10% in Water 500 ML IVC SCH (21:29)
[2021-10-26] MEDS ORDERED: Naloxone 0.4 MG/ML INJ IVP PRN (21:43)
[2021-10-26] MEDS ORDERED: Acetaminophen 325 MG TABLET PO PRN (21:43)
[2021-10-26] MEDS ORDERED: Melatonin 3 MG TABLET PO PRN (21:43)
[2021-10-26] MEDS ORDERED: Ondansetron 4 MG/2 ML VIAL IVP PRN (21:43)
[2021-10-26 22:23] LABS: Influenza A PCR Negative (Negative); Influenza B PCR Negative (Negative); Resp. Syncytial Virus PCR Negative (Negative)
[2021-10-26 22:27] LABS: SARS-CoV-2 by PCR (In House) Negative (Negative)
[2021-10-26] MEDS ORDERED: *HR* Dextrose 50 % in Water (Syg) 50 ML SYRINGE IVP PRN (23:49)
[2021-10-26] MEDS ORDERED: Dextrose Gel 15 GM/37.5 ML TUBE PO PRN ×2 (23:49)
[2021-10-27] MEDS ORDERED: Furosemide 40 MG TABLET PO ONE (00:45)
[2021-10-27] MEDS ORDERED: NIFEdipine XL (24 HR) 60 MG TAB.ER.24 PO SCH (02:25)
[2021-10-27] MEDS: D10% in Water 500 ML IVC SCH ×2 (02:42→12:04)
[2021-10-27 03:01] LABS: Basophils % 0.2 %; Eosinophils # 0.1 K/mcL (0.0-0.6); Eosinophils % 0.9 %; Hematocrit 27.5 % (37.5-50.1); Hemoglobin 8.3 g/dL (12.9-16.9); Immature Granulocytes % 0.4 % (0-4); Lymphocytes # 0.3 K/mcL (0.6-4.6); Lymphocytes % 5.5 %; Mean Corpuscular HGB Conc 30.2 g/dL (31.6-35.5); Mean Corpuscular Hemoglobin 26.9 pg (28.0-33.3); Mean Corpuscular Volume 89.3 fL (83.0-100.0); Mean Platelet Volume 9.3 fL (9.4-12.4); Monocytes # 0.3 K/mcL (0.0-1.3); Monocytes % 4.8 %; Neutrophils # 4.9 K/mcL (1.6-8.9); Platelet Count 185 K/mcL (140-400); Red Blood Count 3.08 M/mcL (4.19-5.50); Red Cell Distribution Width 15.7 % (11.5-14.5); Segmented Neutrophils % 88.2 %; White Blood Count 5.6 K/mcL (4.3-11.1)
[2021-10-27 03:31] LABS: Calcium 8.6 mg/dL (8.6-10.3); Magnesium 1.8 mg/dL (1.6-2.6); Phosphorous 3.5 mg/dL (2.7-4.5); Potassium 5.4 mEq/L (3.5-5.1)
[2021-10-27] MEDS: *HR* Heparin 5,000 UNIT/ML VIAL SQ SCH ×2 (06:20→15:32)
[2021-10-27] MEDS: hydrALAZINE 25 MG TABLET PO SCH ×2 (08:48→15:32)
[2021-10-27] MEDS ORDERED: SODIUM ZIRCONIUM CYCLOSILICATE 5 GM POWD.PACK PO SCH (09:00)
[2021-10-27] MEDS ORDERED: Aspirin Enteric Coated 81 MG Tablet PO SCH (09:00)
[2021-10-27] MEDS ORDERED: Budesonide/Formoterol 160/4.5 1 PUFF INH IH SCH (09:00)
[2021-10-27 10:27] LABS: Estimated Average Glucose 103 mg/dl; Hemoglobin A1C 5.2 %
[2021-10-27 12:22] VITALS: BP 151/54; PULSE 68; TEMP 97.7; O2SAT 98
== END 2021-10-27 16:30 | disposition home or self-care (01) ==
LOC: SUATTDRO → EMEROOARM 19:02 → 2NENU 19:02 → SUATTDRO 22:08 → 2NENU 23:50
PROVIDERS: ADMIT Internal Medicine; ATTEND Internal Medicine

== ENCOUNTER 2021-11-23 18:31 | Inpatient (IN) ==
[2021-11-23 21:02] LABS: Basophils % 0.8 %; Eosinophils # 0.2 K/mcL (0.0-0.6); Eosinophils % 4.4 %; Hematocrit 23.3 % (37.5-50.1); Hemoglobin 7.2 g/dL (12.9-16.9); Immature Granulocytes % 0.3 % (0-4); Lymphocytes # 0.3 K/mcL (0.6-4.6); Lymphocytes % 8.9 %; Mean Corpuscular HGB Conc 30.9 g/dL (31.6-35.5); Mean Corpuscular Hemoglobin 26.7 pg (28.0-33.3); Mean Corpuscular Volume 86.3 fL (83.0-100.0); Mean Platelet Volume 8.8 fL (9.4-12.4); Monocytes # 0.3 K/mcL (0.0-1.3); Monocytes % 8.6 %; Platelet Count 182 K/mcL (140-400); Red Cell Distribution Width 14.9 % (11.5-14.5); White Blood Count 3.8 K/mcL (4.3-11.1)
[2021-11-23 21:17] LABS: BUN/Creatinine Ratio 15 (6-26); Blood Urea Nitrogen 51 mg/dL (8-23); Calcium 8.4 mg/dL (8.6-10.3); Carbon Dioxide 20 mEq/L (23-29); Chloride 106 mEq/L (98-107); Glucose 122 mg/dL (70-105); Osmolality,Calculated 293 (280-300); Potassium 4.7 mEq/L (3.5-5.1); Sodium 134 mEq/L (136-145); Troponin I < 0.03 ng/mL (< 0.04)
[2021-11-23] MEDS ORDERED: Furosemide 40 MG/4 ML VIAL IVP ONE (21:49)
[2021-11-23 22:44] LABS: Thyroid Stimulating Hormone 32.116 mcIU/mL (0.340-5.600)
[2021-11-23] MEDS ORDERED: Acetaminophen 325 MG TABLET PO PRN (23:07)
[2021-11-23] MEDS ORDERED: Naloxone 0.4 MG/ML INJ IVP PRN (23:07)
[2021-11-23] MEDS ORDERED: Ondansetron 4 MG/2 ML VIAL IVP PRN (23:07)
[2021-11-23] MEDS ORDERED: Melatonin 3 MG TABLET PO PRN (23:07)
[2021-11-24] MEDS ORDERED: hydrALAZINE 25 MG TABLET PO SCH (00:15)
[2021-11-24 02:47] LABS: Basophils % 0.5 %; Eosinophils # 0.2 K/mcL (0.0-0.6); Eosinophils % 6.3 %; Hematocrit 24.2 % (37.5-50.1); Hemoglobin 7.4 g/dL (12.9-16.9); Immature Granulocytes % 0.3 % (0-4); Lymphocytes # 0.3 K/mcL (0.6-4.6); Lymphocytes % 7.9 %; Mean Corpuscular HGB Conc 30.6 g/dL (31.6-35.5); Mean Corpuscular Hemoglobin 26.3 pg (28.0-33.3); Mean Corpuscular Volume 86.1 fL (83.0-100.0); Mean Platelet Volume 8.8 fL (9.4-12.4); Monocytes # 0.4 K/mcL (0.0-1.3); Monocytes % 9.2 %; Neutrophils # 2.9 K/mcL (1.6-8.9); Platelet Count 193 K/mcL (140-400); Red Blood Count 2.81 M/mcL (4.19-5.50); Red Cell Distribution Width 14.9 % (11.5-14.5); Segmented Neutrophils % 75.8 %; White Blood Count 3.8 K/mcL (4.3-11.1)
[2021-11-24 02:54] LABS: Prothrombin Time 10.9 Seconds (9.4-12.1)
[2021-11-24 02:56] LABS: Activated Partial Thrombo Time 34.5 Seconds (26.0-36.0)
[2021-11-24 03:07] LABS: Albumin 3.7 g/dL (3.5-5.7); Albumin/Globulin Ratio 1.5 (1.1-2.2); Bilirubin,Total 0.3 mg/dL (0.3-1.0); Calcium 8.5 mg/dL (8.6-10.3); Globulin 2.5 g/dL (2.4-3.5); Magnesium 2.1 mg/dL (1.6-2.6); Phosphorous 3.7 mg/dL (2.7-4.5); Potassium 4.5 mEq/L (3.5-5.1); Total Protein 6.2 g/dL (6.4-8.9)
[2021-11-24] MEDS: Ipratropium/Albuterol Neb 3 ML IH SCH ×2 (04:29→05:10)
[2021-11-24] MEDS ORDERED: 0.9 % Sodium Chloride 250 ML ONE (04:36)
[2021-11-24] MEDS ORDERED: Iron Sucrose Complex 400 MG in 0.9 % Sodium Chloride 250 ML IVPB ONE (05:29)
[2021-11-24] MEDS ORDERED: Dextrose Gel 15 GM/37.5 ML TUBE PO PRN ×2 (05:37)
[2021-11-24] MEDS ORDERED: *HR* Dextrose 50 % in Water (Syg) 50 ML SYRINGE IVP PRN (05:37)
[2021-11-24] MEDS ORDERED: D5% in Water 1,000 ML IVC PRN (05:37)
[2021-11-24] MEDS: *HR* Heparin 5,000 UNIT/ML VIAL SQ SCH ×3 (06:39→21:29)
[2021-11-24] MEDS: hydrALAZINE 25 MG TABLET PO SCH ×3 (06:39→21:30)
[2021-11-24] MEDS: NIFEdipine XL (24 HR) 60 MG TAB.ER.24 PO SCH (06:44)
[2021-11-24] MEDS: Insulin LISPRO 300 UNITS/3 ML VIAL SUBQ SCH ×3 (08:54→16:17)
[2021-11-24] MEDS ORDERED: NIFEdipine XL (24 HR) 60 MG TAB.ER.24 PO SCH (09:00)
[2021-11-24] MEDS: Aspirin Enteric Coated 81 MG Tablet PO SCH (09:03)
[2021-11-24] MEDS: SODIUM ZIRCONIUM CYCLOSILICATE 5 GM POWD.PACK PO SCH (09:03)
[2021-11-24] MEDS: Bumetanide 1 MG/4 ML VIAL IVP SCH ×2 (09:04→16:24)
[2021-11-24] MEDS: Tiotropium 10 INH DOSE IH SCH (10:56)
[2021-11-24] MEDS: Budesonide/Formoterol 160/4.5 1 PUFF INH IH SCH ×2 (10:59→20:32)
[2021-11-24 11:13] LABS: Folate 22.1 ng/mL (3.0-16.0)
[2021-11-24 11:29] LABS: Adenovirus Not Detected (Not Detect); Bordetella Pertussis Not Detected (Not Detect); Chlamydophila pneumoniae Not Detected (Not Detect); Coronavirus 229E Not Detected (Not Detect); Coronavirus HKU1 Not Detected (Not Detect); Coronavirus NL63 Not Detected (Not Detect); Coronavirus OC43 Not Detected (Not Detect); Human Metapneumovirus Not Detected (Not Detect); Human Rhinovirus/Enterovirus Not Detected (Not Detect); Influenza A Subtype 2009 H1 Not Detected (Not Detect); Influenza B Not Detected (Not Detect); Mycoplasma pneumoniae Not Detected (Not Detect); Parainfluenza Virus 1 Not Detected (Not Detect); Parainfluenza Virus 2 Not Detected (Not Detect); Parainfluenza Virus 3 Not Detected (Not Detect); Parainfluenza Virus 4 Not Detected (Not Detect); Respiratory Syncytial Virus Not Detected (Not Detect); SARS-CoV-2 Not Detected (Not Detect)
[2021-11-24 14:21] LABS: Bilirubin,Urine Negative (Negative); Blood,Urine Negative (Negative); Clarity,Urine Clear (Clear); Color,Urine Colorless (Yellow); Glucose,Urine (UA) Normal (Normal); Ketones,Urine Negative (Negative); Leukocyte Esterase,Urine Negative (Negative); Mucus,Urine Few per lpf (None-Few); Nitrite,Urine Negative (Negative); Protein,Urine 70 mg/dL (Neg-Trace); RBC,Urine 0-3 per hpf (0-3); Specific Gravity,Urine 1.009 (1.010-1.025); Urobilinogen,Urine Normal (Normal); WBC,Urine 0-3 per hpf (0-3)
[2021-11-24 16:41] LABS: Protein/Creatinine Ratio,Urine 2.74 mg/mg (0.00-0.20)
[2021-11-24] MEDS: Melatonin 3 MG TABLET PO SCH (21:30)
[2021-11-25 01:01] LABS: Basophils % 0.6 %; Eosinophils # 0.2 K/mcL (0.0-0.6); Eosinophils % 6.4 %; Hematocrit 23.5 % (37.5-50.1); Hemoglobin 7.5 g/dL (12.9-16.9); Immature Granulocytes % 0.3 % (0-4); Lymphocytes # 0.3 K/mcL (0.6-4.6); Lymphocytes % 7.2 %; Mean Corpuscular HGB Conc 31.9 g/dL (31.6-35.5); Mean Corpuscular Hemoglobin 27.7 pg (28.0-33.3); Mean Corpuscular Volume 86.7 fL (83.0-100.0); Mean Platelet Volume 8.4 fL (9.4-12.4); Monocytes # 0.4 K/mcL (0.0-1.3); Monocytes % 10.8 %; Neutrophils # 2.7 K/mcL (1.6-8.9); Platelet Count 159 K/mcL (140-400); Red Blood Count 2.71 M/mcL (4.19-5.50); Red Cell Distribution Width 14.9 % (11.5-14.5); Segmented Neutrophils % 74.7 %; White Blood Count 3.6 K/mcL (4.3-11.1)
[2021-11-25 01:22] LABS: Calcium 8.1 mg/dL (8.6-10.3); Potassium 4.3 mEq/L (3.5-5.1)
[2021-11-25] MEDS: *HR* Heparin 5,000 UNIT/ML VIAL SQ SCH ×3 (05:42→21:08)
[2021-11-25] MEDS: hydrALAZINE 25 MG TABLET PO SCH ×3 (05:42→21:08)
[2021-11-25] MEDS: Tiotropium 10 INH DOSE IH SCH (07:14)
[2021-11-25] MEDS: Budesonide/Formoterol 160/4.5 1 PUFF INH IH SCH ×2 (07:14→19:58)
[2021-11-25] MEDS: Insulin LISPRO 300 UNITS/3 ML VIAL SUBQ SCH ×3 (07:40→16:22)
[2021-11-25] MEDS: Aspirin Enteric Coated 81 MG Tablet PO SCH (09:01)
[2021-11-25] MEDS: NIFEdipine XL (24 HR) 60 MG TAB.ER.24 PO SCH (09:01)
[2021-11-25] MEDS: SODIUM ZIRCONIUM CYCLOSILICATE 5 GM POWD.PACK PO SCH (09:01)
[2021-11-25] MEDS: Bumetanide 1 MG/4 ML VIAL IVP SCH ×2 (09:02→17:06)
[2021-11-25] MEDS ORDERED: Darbepoetin 100 MCG/0.5 ML SYRINGE SQ SCH (13:45)
[2021-11-25] MEDS: Melatonin 3 MG TABLET PO SCH (21:09)
[2021-11-26 02:46] LABS: Basophils % 0.4 %; Eosinophils # 0.2 K/mcL (0.0-0.6); Eosinophils % 5.1 %; Immature Granulocytes % 0.2 % (0-4); Lymphocytes # 0.4 K/mcL (0.6-4.6); Lymphocytes % 8.6 %; Mean Corpuscular HGB Conc 31.8 g/dL (31.6-35.5); Mean Corpuscular Hemoglobin 27.5 pg (28.0-33.3); Mean Corpuscular Volume 86.3 fL (83.0-100.0); Mean Platelet Volume 9.1 fL (9.4-12.4); Monocytes # 0.5 K/mcL (0.0-1.3); Monocytes % 11.3 %; Neutrophils # 3.4 K/mcL (1.6-8.9); Platelet Count 177 K/mcL (140-400); Red Blood Count 2.55 M/mcL (4.19-5.50); Red Cell Distribution Width 15.1 % (11.5-14.5); Segmented Neutrophils % 74.4 %; White Blood Count 4.5 K/mcL (4.3-11.1)
[2021-11-26 03:00] LABS: Potassium 4.8 mEq/L (3.5-5.1)
[2021-11-26] MEDS: *HR* Heparin 5,000 UNIT/ML VIAL SQ SCH (06:19)
[2021-11-26] MEDS: hydrALAZINE 25 MG TABLET PO SCH (06:20)
[2021-11-26] MEDS: Insulin LISPRO 300 UNITS/3 ML VIAL SUBQ SCH ×2 (07:46→11:59)
[2021-11-26] MEDS: Tiotropium 10 INH DOSE IH SCH (07:52)
[2021-11-26] MEDS: Budesonide/Formoterol 160/4.5 1 PUFF INH IH SCH (07:52)
[2021-11-26] MEDS ORDERED: Furosemide 40 MG TABLET PO SCH (08:00)
[2021-11-26] MEDS: SODIUM ZIRCONIUM CYCLOSILICATE 5 GM POWD.PACK PO SCH (08:27)
[2021-11-26] MEDS: Aspirin Enteric Coated 81 MG Tablet PO SCH (08:27)
[2021-11-26] MEDS ORDERED: calcitrioL 0.25 MCG CAPSULE PO SCH ×2 (09:00)
[2021-11-26] MEDS ORDERED: NIFEdipine XL (24 HR) 30 MG TAB.ER.24 PO SCH (09:00)
[2021-11-26] MEDS ORDERED: Doxycycline 100 MG CAPSULE PO SCH (09:45)
[2021-11-26 09:57] LABS: Hematocrit 22.7 % (37.5-50.1)
[2021-11-26] MEDS ORDERED: Vancomycin 0 MG in 0.9 % Sodium Chloride 250 ML IVPB SCH (10:00)
[2021-11-26] MEDS ORDERED: Cefepime HCl 1,000 MG in 0.9 % Sodium Chloride Mini Bag 100 ML IVPB SCH (10:30)
[2021-11-26 10:54] VITALS: BP 133/54; PULSE 61; TEMP 97.6; O2SAT 94
[2021-11-26] MEDS ORDERED: Bumetanide 1 MG TABLET PO SCH (17:00)
== END 2021-11-26 12:40 | disposition home or self-care (01) | DRG 291 ==
LOC: EMEROOARM 18:31 → 2ANU 18:31 → SUATTDRO 22:16 → 2ANU 23:02
PROVIDERS: ADMIT Internal Medicine; ATTEND Internal Medicine